=== PATIENT | male | born 1950 | race Caucasian/White ===

== ENCOUNTER → 2019-12-03 | Outpatient (CLI) | payer MEDICARE, BC, SELFPAY ==
[2019-12-03 12:42] LABS: Absolute Lymphocyte Count 0.49 X10^3/uL (0.83-4.51); Absolute Neutrophil Count 7.2 X10^3/uL (2.0-7.7); Basophil# 0.02 X10^3/uL; Basophil% 0.2 % (0-1); Eosinophil# 0.01 X10^3/uL; Eosinophils% 0.1 % (0-5); Hematocrit 49.2 % (40-54); Hemoglobin 15.4 g/dL (13.0-16.5); Lymphocyte # 0.49 X10^3/ul (4.0); Lymphocyte % 5.9 % (19-41); Mean Corp Hgb Conc 31.3 g/dL (32-36); Mean Corpuscular Hgb 28.1 pg (27.0-32.0); Mean Corpuscular Volume 89.8 fL (80-94); Mean Platelet Vol. 9.5 fl (6.2-12.0); Monocyte# 0.57 X10^3/uL; Monocyte% 6.8 % (0-10); NRBC Flagged by Analyzer 0 % (0-5); Neutrophil # 7.24 X10^3/uL (2.7-7.7); Neutrophil % 86.5 % (47-70); POSITIVE DIFFERENTIAL YES; Platelet Count 252 K/mm3 (150-450); RBC Distribution Width CV 17.5 % (11.6-14.6); RBC Distribution Width SD 55.2 fl (35.1-43.9); Red Blood Count 5.48 M/mm3 (4.6-6.2); White Blood Count 8.4 K/mm3 (4.4-11.0)
[2019-12-03 12:52] LABS: Differential Indicated SCAN CRITERIA MET
[2019-12-03 13:12] LABS: ALB/GLOB Ratio 0.9 RATIO (0.9-2.4); AST(SGOT) 23 U/L (15-37); Alanine Aminotransfer ALT/SGPT 37 U/L (16-61); Albumin, Serum 3.1 g/dL (3.2-5.0); Alkaline Phosphatase 50 U/L (45-117); Anion Gap 1 (5-15); BUN 23 mg/dL (7-18); BUN/Creat Ratio 23.3 RATIO (10-20); Calcium,Total 8.4 mg/dL (8.5-10.1); Chloride 105 mmol/L (98-107); Creatinine, Serum 0.99 mg/dL (0.70-1.30); EST Glomerular Filtration Rate 80 mL/min (>60); Est Glom Filt Rate - Afr Amer 97 mL/min (>60); Globulin 3.3 g/dL (2.2-4.2); Glucose 95 mg/dL (74-106); Potassium 4.2 mmol/L (3.5-5.1); Protein, Total 6.4 g/dL (6.4-8.2); Rheumatoid Factor < 10.0 IU/mL (<15); Sodium Level 137 mmol/L (136-145)
[2019-12-03 13:35] LABS: Hepatitis B Surface Antibody Non-Reactive; Hepatitis B Surface Antigen Non-Reactive (Nonreactive); Hepatitis C Antibody Non-Reactive (Nonreactive)
[2019-12-04 20:28] LABS: ANTINUCLEAR ANTIBODIES DIRECT Negative (Negative)
[2019-12-05 04:16] LABS: CCP IgG Antibodies 3 units (0-19); Hepatitis B Core AB IgM Negative (Negative)
== END | disposition home or self-care (01) ==
LOC: MTLAB 09:42
PROVIDERS: Referring Provider Internal Medicine Rheumatology; Visit Provider Internal Medicine Rheumatology
DX: M06.4 Inflammatory polyarthropathy (principal); M47.897 Other spondylosis, lumbosacral region; M21.41 Flat foot [pes planus] (acquired), right foot; H93.19 Tinnitus, unspecified ear; N40.0 Benign prostatic hyperplasia without lower urinary tract symptoms
CPT/HCPCS: 36415; 80053; 85025; 86038; 86200; 86431; 86705; 86706; 86803; 87340

== ENCOUNTER 2020-07-21 09:15 | Outpatient (RCR) | payer MEDICARE, BC, SELFPAY | END 2020-07-21 23:59 | LOC: IMMUN 09:15 | PROVIDERS: Visit Provider Family Medicine | DX: Z23 Encounter for immunization (principal) | CPT/HCPCS: 0011A; 0012A ==